=== PATIENT | female | born 1995 | race Caucasian/White ===

== ENCOUNTER 2019-02-03 15:51 | Observation (INO) ==
[2019-02-03 16:38] LABS: Bilirubin,Urine Negative (Negative); Blood,Urine Negative (Negative); Clarity,Urine Cloudy (Clear); Color,Urine Yellow (Yellow); Glucose,Urine (UA) Normal (Normal); Ketones,Urine Negative (Negative); Leukocyte Esterase,Urine Small (Negative); Nitrite,Urine Negative (Negative); Protein,Urine Negative (Neg-Trace); Specific Gravity,Urine 1.017 (1.010-1.025); Urobilinogen,Urine Normal (Normal)
[2019-02-03 16:40] LABS: Bacteria,Urine None Seen per hpf (None-Few); Hyaline Casts,Urine None Seen per lpf (None-Few); RBC,Urine 0-3 per hpf (0-3); Squamous Epithelial Cell,Urine Many per lpf (None-Few)
[2019-02-03 16:49] LABS: Amphetamine Screen,Urine Negative ng/mL (Cutoff=1000); Barbiturate Screen,Urine Negative ng/mL (Cutoff=200)
[2019-02-03 16:50] LABS: Benzodiazepines Screen,Urine Negative ng/mL (Cutoff=300); Cannabinoid Screen,Urine Negative ng/mL (Cutoff = 50); Cocaine Screen,Urine Negative ng/mL (Cutoff= 300); Opiate Screen,Urine Negative ng/mL (Cutoff=300); Phencyclidine Screen,Urine Negative ng/mL (Cutoff=25)
[2019-02-03 17:07] VITALS: BP 144/93
--- NOTE | 2019-02-03 17:51 | Discharge Summary ---
Date of Encounter: 02/03/19 Time of Encounter: 17:51 - Discharge Diagnosis (1) 20 weeks gestation of Priority: Primary Status: Acute Comments: Follow-up with Dr. Whelan as scheduled Muscle strain discussed Discharge home (2) Left sided abdominal pain of unknown cause Priority: Secondary Status: Acute Comments: RX for flexiril given for pt to take prn Advised to use heating pad for 20 minutes every hour Work note given for 2 days - Discharge Medications Prescriptions: New Cyclobenzaprine [Flexeril] 10 mg PO TID PRN 2 Days #6 tablet PRN Reason: Pain Continue Mini Tablet 1 tab PO DAILY Certolizumab Pegol [Cimzia] 400 mg SQ QMONTH Home Medications: Certolizumab Pegol [Cimzia] 400 mg SQ QMONTH 02/03/19 [History] Cyclobenzaprine [Flexeril] 10 mg PO TID PRN 2 Days #6 tablet 02/03/19 [Rx] Mini Tablet 1 tab PO DAILY 02/03/19 [History] Allergies/Adverse Reactions: Allergy/AdvReac Type Severity Reaction Status Date / Time No Known Allergies Allergy Verified 10/31/18 17:31 Data Procedures and tests throughout hospitalization: Laboratory Tests 02/03/19 02/03/19 16:20 16:20 Urine Color Yellow Urine Clarity Cloudy A Urine pH 7.0 Ur Specific [place] 1.017 Urine Protein Negative Urine Glucose (UA) Normal Urine Ketones Negative Urine Blood Negative Urine Nitrite Negative Urine Bilirubin Negative Urine Urobilinogen Normal Ur Leukocyte Esterase Small H Urine Microscopic RBC 0-3 Urine Microscopic WBC 5-15 H Ur Squamous Epith Cells Many H Urine Bacteria None Seen Hyaline Casts None Seen Ur Culture Indicated? NO. A Urine Opiates Screen Negative Ur Barbiturates Screen Negative Ur Phencyclidine Scrn Negative Ur Amphetamines Screen Negative U Benzodiazepines Scrn Negative Urine Cocaine Screen Negative U Marijuana (THC) Screen Negative Ur Drug Screen Interp See Below Labs on day of discharge: Labs from last 24 hours 02/03/19 02/03/19 16:20 16:20 Urine Color Yellow Urine Clarity Cloudy A Urine pH 7.0 Ur Specific [place] 1.017 Urine Protein Negative Urine Glucose (UA) Normal Urine Ketones Negative Urine Blood Negative Urine Nitrite Negative Urine Bilirubin Negative Urine Urobilinogen Normal Ur Leukocyte Esterase Small H Urine Microscopic RBC 0-3 Urine Microscopic WBC 5-15 H Ur Squamous Epith Cells Many H Urine Bacteria None Seen Hyaline Casts None Seen Ur Culture Indicated? NO. A Urine Opiates Screen Negative Ur Barbiturates Screen Negative Ur Phencyclidine Scrn Negative Ur Amphetamines Screen Negative U Benzodiazepines Scrn Negative Urine Cocaine Screen Negative U Marijuana (THC) Screen Negative Ur Drug Screen Interp See Below Date of admission: 02/03/19 15:41 Discharging clinician: Xin Schofield Anticipated date of discharge: 02/03/19 - Patient Status Disposition: Home, Self-Care Condition: Good Functional capacity at discharge: independent ambulation Overall status at discharge: patient is progressing back to baseline - Discharge Instructions Follow Up With: Marie Whelan DO [Partnered Physician] - - Diet and Activity Activity: increase activity as tolerated Diet: regular diet 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 She reports last intercourse was 7 AM this morning. She states the pain is constant and not related to movement or position. She denies dysuria, leakage of fluid, vaginal bleeding, contractions. Her analysis was negative. We discussed that this is likely a muscle strain. We discussed aftercare for muscle strain. She is discharged home with appropriate follow-up in stable condition. Time Attestation: Total time spent providing and/or coordinating discharge services: Time Spent: Less than 30 minutes Exam - Constitutional Vitals: Temp Pulse Resp BP Pulse Ox 99.4 F 82 16 144/93 98 02/03/19 16:45 02/03/19 16:45 02/03/19 16:45 02/03/19 16:45 02/03/19 16:45 General appearance IM: A&O X 3 - Respiratory Respiratory exam: Present: CTAB - Cardiovascular Cardiovascular exam IM: Present: RRR, +S1, +S2 - GI/Abdominal GI/Abdominal exam IM: normal bowel sounds, no peritoneal signs - Rectal Rectal exam: deferred - Uterine Tone: Firm - Extremities Exam Extremities exam IM: Present: full ROM, normal capillary refill, normal inspection, radial pulses palpable and symmetrical - Neurological Exam Neurological exam: alert, CN II-XII intact, normal gait, oriented X3, reflexes normal, no focal deficits, strengths equal and symetr throughout - Other Additional findings: Left-sided torso pain - VTE Reasons for not Prescribing Prophylaxis: Treatment not Indicated - Low risk for VTE
== END 2019-02-03 18:17 | disposition home or self-care (01) ==
LOC: 1NENULAB
PROVIDERS: ADMIT Advanced Practice Midwife; ATTEND Advanced Practice Midwife

== ENCOUNTER → 2019-02-08 04:00 | Observation (INO) ==
[2019-02-08 01:32] LABS: Basophils % 0.2 %; Eosinophils # 0.1 K/mcL (0.0-0.6); Eosinophils % 0.5 %; Hematocrit 34.8 % (35.3-44.9); Hemoglobin 11.7 g/dL (11.5-15.4); Immature Granulocytes % 0.4 % (0-4); Lymphocytes # 1.9 K/mcL (0.6-4.6); Lymphocytes % 10.5 %; Mean Corpuscular HGB Conc 33.6 g/dL (31.6-35.5); Mean Corpuscular Hemoglobin 28.5 pg (28.0-33.3); Mean Corpuscular Volume 84.9 fL (83.0-100.0); Monocytes # 0.9 K/mcL (0.0-1.3); Monocytes % 5.1 %; Neutrophils # 14.7 K/mcL (1.6-8.9); Platelet Count 196 K/mcL (140-400); Red Cell Distribution Width 14.4 % (11.5-14.5); Segmented Neutrophils % 83.3 %
[2019-02-08 01:57] LABS: Bilirubin,Urine Negative (Negative); Blood,Urine Small (Negative); Clarity,Urine Cloudy (Clear); Color,Urine Yellow (Yellow); Glucose,Urine (UA) Normal (Normal); Ketones,Urine Trace mg/dL (Negative); Leukocyte Esterase,Urine Large (Negative); Nitrite,Urine Negative (Negative); Protein,Urine 30 mg/dL (Neg-Trace); Specific Gravity,Urine 1.008 (1.010-1.025); Urobilinogen,Urine Normal (Normal)
[2019-02-08 02:00] LABS: Bacteria,Urine Many per hpf (None-Few); Hyaline Casts,Urine None Seen per lpf (None-Few); Squamous Epithelial Cell,Urine Moderate per lpf (None-Few); WBC,Urine TNTC per hpf (0-3)
[2019-02-08 02:16] LABS: Amphetamine Screen,Urine Negative ng/mL (Cutoff=1000); Barbiturate Screen,Urine Negative ng/mL (Cutoff=200); Benzodiazepines Screen,Urine Negative ng/mL (Cutoff=200); Cannabinoid Screen,Urine Negative ng/mL (Cutoff = 50); Cocaine Screen,Urine Negative ng/mL (Cutoff= 300); Opiate Screen,Urine Negative ng/mL (Cutoff=300); Phencyclidine Screen,Urine Negative ng/mL (Cutoff=25)
--- NOTE | 2019-02-08 03:31 | OB/GYN Progress Note ---
Date of Encounter: 02/08/19 Time of Encounter: 03:29 - Assessment and Plan (1) Right flank pain Current Visit: Yes Status: Acute Afebrile. - CVA tenderness, but WBC and UA indicate pyelo. Discussed with Dr. Clark will give 1gm IM Rocephin and discharge home with po Keflex TID for 10 days. Pt has follow up appointment on Saturday. Discussed if she does not have improvement of symptoms, develops fever, or increase in pain or malaise she needs to return to triage for evaluation. Laboratory Results - last 24 hr 02/08/19 02/08/19 02/08/19 01:19 01:30 01:30 WBC 17.6 H RBC 4.10 Hgb 11.7 Hct 34.8 L MCV 84.9 MCH 28.5 MCHC 33.6 RDW 14.4 Plt Count 196 MPV 11.0 Immature Gran % 0.4 Seg Neutrophils % 83.3 Lymphocytes % 10.5 Monocytes % 5.1 Eosinophils % 0.5 Basophils % 0.2 Neutrophils # 14.7 H Lymphocytes # 1.9 Monocytes # 0.9 Eosinophils # 0.1 Basophils # 0.0 Urine Color Yellow Urine Clarity Cloudy A Urine pH 8.0 Ur Specific [place] 1.008 L Urine Protein 30 H Urine Glucose (UA) Normal Urine Ketones Trace H Urine Blood Small H Urine Nitrite Negative Urine Bilirubin Negative Urine Urobilinogen Normal Ur Leukocyte Esterase Large H Urine Microscopic RBC 5-15 H Urine Microscopic WBC TNTC H Ur Squamous Epith Cells Moderate H Urine Bacteria Many H Hyaline Casts None Seen Ur Culture Indicated? YES A Urine Opiates Screen Negative Ur Barbiturates Screen Negative Ur Phencyclidine Scrn Negative Ur Amphetamines Screen Negative U Benzodiazepines Scrn Negative Urine Cocaine Screen Negative U Marijuana (THC) Screen Negative Ur Drug Screen Interp See Below (2) 20 weeks gestation of Current Visit: No Status: Acute Subjective - Subjective Interval history: 20+5 presents with flank pain. Pt states she was seen a couple days ago for a muscle strain on the left side. Today patient has been having severe pain to her left lower back, it varies in intensity and hurts with rest. Denies dysuria, frequency or urgency. Reports movement, denies vaginal bleeding or leaking of fluid. Antepartum ROS: movement normal, no loss of fluid, no vaginal bleeding, no contractions Objective - Vital Signs Vital Signs: Intake and Output 02/07/19 02/07/19 02/08/19 15:59 23:59 07:59 Other: Weight 81.7 kg Patient Weight 02/08/19 23:59 Weight 81.7 kg - Exam FHR comments: + FHT Abdomen: Present: soft, gravid Comments: - cva tenderness - Labs Labs: Abnormal lab results WBC 17.6 K/mcL (4.3-11.1) H 02/08/19 01:19 Hct 34.8 % (35.3-44.9) L 02/08/19 01:19 Neutrophils # 14.7 K/mcL (1.6-8.9) H 02/08/19 01:19 Urine Clarity Cloudy (Clear) A 02/08/19 01:30 Ur Specific [place] 1.008 (1.010-1.025) L 02/08/19 01:30 Urine Protein 30 mg/dL (Neg-Trace) H 02/08/19 01:30 Urine Ketones Trace mg/dL (Negative) H 02/08/19 01:30 Urine Blood Small (Negative) H 02/08/19 01:30 Ur Leukocyte Esterase Large (Negative) H 02/08/19 01:30 Urine Microscopic RBC 5-15 per hpf (0-3) H 02/08/19 01:30 Urine Microscopic WBC TNTC per hpf (0-3) H 02/08/19 01:30 Ur Squamous Epith Cells Moderate per lpf (None-Few) H 02/08/19 01:30 Urine Bacteria Many per hpf (None-Few) H 02/08/19 01:30 Ur Culture Indicated? YES (NO) A 02/08/19 01:30
[~2019-02-08 04:00] MED LIST: Acetaminophen 325 MG TABLET PO ONE; CefTRIAXone 1,000 MG VIAL IM ONE; Lidocaine -MPF 1% 5 ML AMPUL ID ONE; Ondansetron ODT 4 MG TAB.RAPDIS SL PRN
== END | disposition home or self-care (01) ==
LOC: 1NENULAB
PROVIDERS: ADMIT Obstetrics & Gynecology; ATTEND Obstetrics & Gynecology

== ENCOUNTER 2019-05-22 08:33 | Observation (INO) ==
[2019-05-22 09:27] LABS: Bilirubin,Urine Negative (Negative); Blood,Urine Negative (Negative); Clarity,Urine Clear (Clear); Color,Urine Yellow (Yellow); Glucose,Urine (UA) Normal (Normal); Ketones,Urine Negative (Negative); Leukocyte Esterase,Urine Moderate (Negative); Nitrite,Urine Negative (Negative); PH,Urine 6.5 pH Units (5.0-8.0); Protein,Urine Negative (Neg-Trace); Specific Gravity,Urine 1.008 (1.010-1.025); Urobilinogen,Urine Normal (Normal)
[2019-05-22] MEDS ORDERED: Acetaminophen/Butalbital/CaffeineTABLET PO PRN (09:28)
[2019-05-22 09:30] LABS: Bacteria,Urine None Seen per hpf (None-Few); Hyaline Casts,Urine None Seen per lpf (None-Few); RBC,Urine 0-3 per hpf (0-3); Squamous Epithelial Cell,Urine Many per lpf (None-Few)
[2019-05-22 09:37] LABS: Amphetamine Screen,Urine Negative ng/mL (Cutoff=1000); Barbiturate Screen,Urine Negative ng/mL (Cutoff=200); Benzodiazepines Screen,Urine Negative ng/mL (Cutoff=200); Cannabinoid Screen,Urine Negative ng/mL (Cutoff = 50); Cocaine Screen,Urine Negative ng/mL (Cutoff= 300); Opiate Screen,Urine Negative ng/mL (Cutoff=300); Phencyclidine Screen,Urine Negative ng/mL (Cutoff=25)
[2019-05-22] MEDS ORDERED: Ondansetron ODT 4 MG TAB.RAPDIS SL PRN (10:42)
--- NOTE | 2019-05-22 11:59 | Discharge Summary ---
Date of Encounter: 05/22/19 Time of Encounter: 11:58 - Discharge Diagnosis (1) 35 weeks gestation of Priority: Secondary Status: Acute Comments: admitted for observation (2) Nausea & vomiting Priority: Primary Status: Acute Comments: admitted for observation Nausea better with Zofran ODT Qualifiers: Vomiting type: unspecified Vomiting Intractability: unspecified (3) NST (non-stress test) reactive on surveillance Priority: Secondary Status: Acute Comments: FHR 135 bpm moderate variability +15x15 accels no decels noted. Irregular contractions. Cat. 1 tracing - Discharge Medications Prescriptions: New Ondansetron ODT [Zofran ODT] 4 mg SL Q6HR PRN #12 tab.rapdis PRN Reason: Nausea And Vomiting Continued Mini Tablet 1 tab PO DAILY Certolizumab Pegol [Cimzia] 400 mg SQ QMONTH Nitrofurantoin Monohyd/M-Cryst [Macrobid 100 mg Capsule] 100 mg PO DAILY Home Medications: Certolizumab Pegol [Cimzia] 400 mg SQ QMONTH 02/03/19 [History] Mini Tablet 1 tab PO DAILY 02/03/19 [History] Nitrofurantoin Monohyd/M-Cryst [Macrobid 100 mg Capsule] 100 mg PO DAILY 05/22/19 [History] Ondansetron ODT [Zofran ODT] 4 mg SL Q6HR PRN #12 tab.rapdis 05/22/19 [Rx] Allergies/Adverse Reactions: Allergy/AdvReac Type Severity Reaction Status Date / Time No Known Allergies Allergy Verified 02/08/19 02:23 Data Procedures and tests throughout hospitalization: Laboratory Tests 05/22/19 05/22/19 09:00 09:00 Urine Color Yellow Urine Clarity Clear Urine pH 6.5 Ur Specific [place] 1.008 L Urine Protein Negative Urine Glucose (UA) Normal Urine Ketones Negative Urine Blood Negative Urine Nitrite Negative Urine Bilirubin Negative Urine Urobilinogen Normal Ur Leukocyte Esterase Moderate H Urine Microscopic RBC 0-3 Urine Microscopic WBC 5-15 H Ur Squamous Epith Cells Many H Urine Bacteria None Seen Hyaline Casts None Seen Ur Culture Indicated? YES A Urine Opiates Screen Negative Ur Buprenorphine Scrn Negative Ur Barbiturates Screen Negative Ur Phencyclidine Scrn Negative Ur Amphetamines Screen Negative U Benzodiazepines Scrn Negative Urine Cocaine Screen Negative U Marijuana (THC) Screen Negative Ur Drug Screen Interp See Below Labs on day of discharge: Labs from last 24 hours 05/22/19 05/22/19 09:00 09:00 Urine Color Yellow Urine Clarity Clear Urine pH 6.5 Ur Specific [place] 1.008 L Urine Protein Negative Urine Glucose (UA) Normal Urine Ketones Negative Urine Blood Negative Urine Nitrite Negative Urine Bilirubin Negative Urine Urobilinogen Normal Ur Leukocyte Esterase Moderate H Urine Microscopic RBC 0-3 Urine Microscopic WBC 5-15 H Ur Squamous Epith Cells Many H Urine Bacteria None Seen Hyaline Casts None Seen Ur Culture Indicated? YES A Urine Opiates Screen Negative Ur Buprenorphine Scrn Negative Ur Barbiturates Screen Negative Ur Phencyclidine Scrn Negative Ur Amphetamines Screen Negative U Benzodiazepines Scrn Negative Urine Cocaine Screen Negative U Marijuana (THC) Screen Negative Ur Drug Screen Interp See Below Preliminary micro results at discharge 05/22/19 09:00 Urine Culture - Preliminary Urine,Clean Catch Culture is incubating. 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 Patient states she took a tylenol and had no relief. Patient reports good movement. Denies LOF or VB. Patient reports feeling better after zofran and is tolerating clear liquid diet. Patient states headache is gone at this time. Patient to be discharged home and follow up with Dr. Whelan in 1 week. Time Attestation: Total time spent providing and/or coordinating discharge services: Time Spent: Less than 30 minutes Exam - Constitutional General appearance IM: A&O X 3, pleasant, answers questions appropriately - Respiratory Respiratory exam: Present: CTAB - Cardiovascular Cardiovascular exam IM: Present: RRR, +S1, +S2 - GI/Abdominal GI/Abdominal exam IM: normal bowel sounds - Extremities Exam Extremities exam IM: Present: full ROM, normal inspection - Neurological Exam Neurological exam: alert, oriented X3, reflexes normal - Other Additional findings: SVE /-2 - VTE Reasons for not Prescribing Prophylaxis: Treatment not Indicated - Low risk for VTE
== END 2019-05-22 12:29 | disposition home or self-care (01) ==
LOC: 1NENULAB
PROVIDERS: ADMIT Advanced Practice Midwife; ATTEND Advanced Practice Midwife

== ENCOUNTER → 2019-06-09 18:06 | Observation (INO) ==
[2019-06-09 16:59] LABS: Basophils % 0.2 %; Eosinophils # 0.1 K/mcL (0.0-0.6); Eosinophils % 0.7 %; Hematocrit 34.1 % (35.3-44.9); Hemoglobin 11.5 g/dL (11.5-15.4); Immature Granulocytes % 0.5 % (0-4); Lymphocytes # 2.1 K/mcL (0.6-4.6); Lymphocytes % 17.2 %; Mean Corpuscular HGB Conc 33.7 g/dL (31.6-35.5); Mean Corpuscular Hemoglobin 28.8 pg (28.0-33.3); Mean Corpuscular Volume 85.3 fL (83.0-100.0); Monocytes # 0.7 K/mcL (0.0-1.3); Monocytes % 5.7 %; Neutrophils # 9.3 K/mcL (1.6-8.9); Platelet Count 151 K/mcL (140-400); Red Cell Distribution Width 13.9 % (11.5-14.5); Segmented Neutrophils % 75.7 %; White Blood Count 12.2 K/mcL (4.3-11.1)
[2019-06-09 17:06] LABS: Protein/Creatinine Ratio,Urine 0.14 mg/mg (0.00-0.20)
[2019-06-09 17:07] LABS: Amphetamine Screen,Urine Negative ng/mL (Cutoff=1000); Barbiturate Screen,Urine Negative ng/mL (Cutoff=200); Benzodiazepines Screen,Urine Negative ng/mL (Cutoff=200); Cannabinoid Screen,Urine Negative ng/mL (Cutoff = 50); Cocaine Screen,Urine Negative ng/mL (Cutoff= 300); Opiate Screen,Urine Negative ng/mL (Cutoff=300); Phencyclidine Screen,Urine Negative ng/mL (Cutoff=25)
[2019-06-09 17:18] LABS: Alanine Aminotransferase 5 Units/L (7-52); Aspartate Amino Transferase 11 Units/L (13-39); BUN/Creatinine Ratio 20 (6-26); Blood Urea Nitrogen 10 mg/dL (6-20); Lactate Dehydrogenase 111 Units/L (140-271); Uric Acid 5.2 mg/dL (2.3-7.6); eGFR For African Americans > 60 (> 60); eGFR For Non-African Americans > 60 (> 60)
--- NOTE | 2019-06-09 18:18 | OB/GYN Progress Note ---
Date of Encounter: 06/09/19 Time of Encounter: 18:15 - Assessment and Plan (1) 38 weeks gestation of Status: Acute (2) Elevated blood pressure affecting in third trimester, antepartum Status: Acute Patient normotensive blood pressures 132/79 121/38398/79 133/83 . PIH labs negative. Discharged home with PIH, and labor precautions. Patient verbalizes understanding. Subjective - Subjective Interval history: 30 and 0 weeks gestation presents to triage for PIH evaluation. Patient had elevated blood pressures in office. Reports good movement, denies vaginal bleeding or leaking of fluid. Antepartum ROS: movement normal, no loss of fluid, no vaginal bleeding, no contractions Objective - Vital Signs Vital Signs: Intake and Output 06/09/19 06/09/19 06/09/19 07:59 15:59 23:59 Other: Weight 85.23 kg Patient Weight 06/09/19 23:59 Weight 85.23 kg - Exam FHR: auscultation normal FHR comments: Baseline 130 Abdomen: Present: soft, gravid - Labs Labs: Abnormal lab results WBC 12.2 K/mcL (4.3-11.1) H 06/09/19 16:46 Hct 34.1 % (35.3-44.9) L 06/09/19 16:46 MPV 13.0 fL (9.4-12.4) H 06/09/19 16:46 Neutrophils # 9.3 K/mcL (1.6-8.9) H 06/09/19 16:46 Creatinine 0.50 mg/dL (0.60-1.20) L 06/09/19 16:45 AST 11 Units/L (13-39) L 06/09/19 16:45 ALT 5 Units/L (7-52) L 06/09/19 16:45 Lactate Dehydrogenase 111 Units/L (140-271) L 06/09/19 16:45 Urine Total Protein 17 mg/dL (1-14) H 06/09/19 16:47
== END | disposition home or self-care (01) ==
LOC: 1NENULAB
PROVIDERS: ADMIT Advanced Practice Midwife; ATTEND Advanced Practice Midwife

== ENCOUNTER 2019-06-13 00:36 | Inpatient (IN) ==
[2019-06-13] MEDS ORDERED: Ondansetron ODT 4 MG TAB.RAPDIS SL ONE (01:21)
[2019-06-13] MEDS ORDERED: Lidocaine 1% 20 ML MDV INFILT PRN (02:24)
[2019-06-13] MEDS ORDERED: Ondansetron 4 MG/2 ML VIAL IVP PRN (02:24)
[2019-06-13] MEDS ORDERED: Naloxone 0.4 MG/ML INJ IVP PRN (02:24)
[2019-06-13] MEDS ORDERED: Famotidine 20 MG/2 ML VIAL IVP PRN (02:24)
[2019-06-13] MEDS ORDERED: *HR* Nalbuphine 10 MG/ML AMPUL IVP PRN (02:24)
[2019-06-13] MEDS ORDERED: Metoclopramide 10 MG/2 ML VIAL IVP PRN (02:24)
[2019-06-13] MEDS ORDERED: Ringers Solution, Lactated 1,000 ML ONE (02:28)
[2019-06-13] MEDS ORDERED: Ringers Solution, Lactated 1,000 ML IVC SCH (02:30)
--- NOTE | 2019-06-13 02:40 | OB/GYN History & Physical ---
Date of Encounter: 06/13/19 Time of Encounter: 02:35 Assessment and Plan (1) Active labor Current visit: Yes Status: Acute Admit to L&D for observation of labor Expectant management Intermittent auscultation okay Labs-CBC and type and screen to hold Pain management plan is epidural-may have upon request Anticipate vaginal delivery Dr. Goodman is OB on-call and is available as needed (2) Intrauterine Current visit: Yes Status: Acute (3) 38 weeks gestation of Current visit: No Status: Acute History of Present Illness Chief complaint: active labor HPI: Ms. Vidales is a 23 year old female at 38 weeks for 4 days gestation with an estimated date of of 06/23/19 dated by initial exam. She presents with complaint of contractions starting at 2300 on 06/12/19. She presented to labor and delivery and quickly made change from 4-8. She is followed by Dr. Whelan throughout her . Her has been complicated by recurrent UTIs, Rh- status, and GRECIA 7.7. records are available electronically and have been reviewed. Labs: A- GBS- Hep B- HIV- T. Palladium- GC/CL- Varicella immune Rubella immune Past Med Surg Social Fam HX - Past Medical History Medical history: arthritis Additional medical history: Psoriatic Arthritis Psychiatric history: no psych history - Past Surgical History Additional surgical history: mass removed from left breast 2014 - Social History Smoking Status: Never smoker Smokeless Tobacco Status: No Alcohol use: none Drug use: none - Family History Mother Living Status: Still Living Hx Family Cardiac Disorders: No Hx Family Respiratory Disorders: No Hx Family Cancer: No Hx Family GI Disorders: No Hx Family Genitourinary Disorders: No Hx Family Endocrine Disorder: No Hx Family Musculoskeletal Disorders: No Hx Family Neuromuscular Disorders: No Hx Family Neurologic Disorders: No Hx Family HEENT Disorders: No Hx Family Autoimmune Disorders: No Hx Family Reproductive Disorders: No Hx Family Psychosocial Disorders: No Hx Family Medical Disorders: No Obstetrical History - Pregnancies : 1 Para: 0 Term: 0 : 0 Ab's: 0 Livin Medications and Allergies Certolizumab Pegol [Cimzia] 400 mg SQ QMONTH 02/03/19 [History] Mini Tablet 1 tab PO DAILY 02/03/19 [History] Nitrofurantoin Monohyd/M-Cryst [Macrobid 100 mg Capsule] 100 mg PO DAILY 05/22/19 [History] Allergy/AdvReac Type Severity Reaction Status Date / Time No Known Allergies Allergy Verified 02/08/19 02:23 Review of System OB All systems PM: reviewed and no additional remarkable complaints except as stated Exam - Constitutional Constitutional: well developed, well nourished, average body habitus, moderate distress - HEENT HEENT: PERRL, Normocephaly, Mucus Membranes Moist - Neck Neck exam: full ROM - Lungs Respiratory exam: CTAB - Cardiovascular Cardiovascular exam: RRR, +S1, +S2 - Breasts Breast: bilateral: normal - Abdomen Abdomen: Present: bowel sounds normal, gravid, non tender - Extremities Extremities exam: normal capillary refill, normal inspection, radial pulses palpable and symmetrical - Vulva Vulva: bilateral: normal - Vagina Vagina: Present: normal moisture - Cervix Dilation: 8 Effacement: 100 Station: -1 - Uterus Uterus exam: Present: normal size, normal contour - Adnexa Adnexa: bilateral: normal - Anus/Rectum Anus/Rectum: Present: normal perianal skin Results All other labs normal. - VTE Reasons for not Prescribing Prophylaxis: Treatment not Indicated - Low risk for VTE
[2019-06-13 02:47] LABS: Basophils % 0.2 %; Eosinophils # 0.1 K/mcL (0.0-0.6); Eosinophils % 0.6 %; Hematocrit 35.9 % (35.3-44.9); Hemoglobin 12.1 g/dL (11.5-15.4); Immature Granulocytes % 0.5 % (0-4); Lymphocytes # 2.3 K/mcL (0.6-4.6); Lymphocytes % 15.5 %; Mean Corpuscular HGB Conc 33.7 g/dL (31.6-35.5); Mean Corpuscular Hemoglobin 28.3 pg (28.0-33.3); Mean Corpuscular Volume 84.1 fL (83.0-100.0); Mean Platelet Volume 13.4 fL (9.4-12.4); Monocytes # 1.1 K/mcL (0.0-1.3); Monocytes % 7.2 %; Neutrophils # 11.4 K/mcL (1.6-8.9); Platelet Count 157 K/mcL (140-400); Red Blood Count 4.27 M/mcL (3.82-4.97); Red Cell Distribution Width 14.1 % (11.5-14.5)
[2019-06-13] MEDS ORDERED: Oxytocin 20 units/ LR 1000 mL 20 UNIT/1,000 ML BAG IVC ONE (02:53)
[2019-06-13] MEDS ORDERED: Bupivacaine-MPF 0.25% 10 ML VIAL ONE (03:00)
[2019-06-13] MEDS ORDERED: Epidural Premix (fent/bupiv) 110 ML EP SCH (03:00)
[2019-06-13] MEDS ORDERED: *HR* FentaNYL (PF) 100 MCG/2 ML VIAL ONE (03:00)
[2019-06-13] MEDS ORDERED: *HR* Labetalol 20 MG/4 ML SYRINGE IVP ONE ×3 (03:03→03:28)
[2019-06-13 03:39] LABS: Alanine Aminotransferase 5 Units/L (7-52); Aspartate Amino Transferase 11 Units/L (13-39); BUN/Creatinine Ratio 21 (6-26); Blood Urea Nitrogen 10 mg/dL (6-20); Lactate Dehydrogenase 132 Units/L (140-271); Uric Acid 5.4 mg/dL (2.3-7.6); eGFR For African Americans > 60 (> 60); eGFR For Non-African Americans > 60 (> 60)
[2019-06-13 04:39] LABS: Amphetamine Screen,Urine Negative ng/mL (Cutoff=1000); Barbiturate Screen,Urine Negative ng/mL (Cutoff=200); Benzodiazepines Screen,Urine Negative ng/mL (Cutoff=200); Cannabinoid Screen,Urine Negative ng/mL (Cutoff = 50); Cocaine Screen,Urine Negative ng/mL (Cutoff= 300); Opiate Screen,Urine Negative ng/mL (Cutoff=300); Phencyclidine Screen,Urine Negative ng/mL (Cutoff=25); Protein/Creatinine Ratio,Urine 0.27 mg/mg (0.00-0.20)
--- NOTE | 2019-06-13 06:43 | Anesthesia Evaluation PreOp ---
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 No FHAP.) : Yes Alcohol Use: none Drug use: none Medications and Allergies Certolizumab Pegol [Cimzia] 400 mg SQ QMONTH 02/03/19 [History] Mini Tablet 1 tab PO DAILY 02/03/19 [History] Nitrofurantoin Monohyd/M-Cryst [Macrobid 100 mg Capsule] 100 mg PO DAILY 05/22/19 [History] Allergy/AdvReac Type Severity Reaction Status Date / Time No Known Allergies Allergy Verified 02/08/19 02:23 - Meds/Allergy Pre-op Review Medications Reviewed: Yes Allergies Reviewed: Yes Beta Blockers on Current Med List: No Anesthesia Results - Labs 06/13/19 02:30 06/13/19 02:30 Anesthesia Exam 172/72, 67, 20. FHTs 140s. 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
[2019-06-13] MEDS ORDERED: Oxytocin 20 units/ LR 1000 mL 20 UNIT/1,000 ML BAG IVC SCH ×2 (07:30→12:50)
--- NOTE | 2019-06-13 09:22 | OB Labor Progress Note ---
Date of Encounter: 06/13/19 Time of Encounter: 09:20 Labor Progress Note - Subjective Subjective: Patient now comfortable with epidural - Cervix Cervix: 9/100/+1 - Heart Tones Heart Tones: Baseline 130 Moderate variability Accelerations present 15 x 15 Early decelerations FHR Category I - Grand Ledge Grand Ledge: Contractions every 2-3 minutes - Interventions Interventions: SVE deep lateral positioning - Plan Physician notified: No Plan: Continue expectant management Frequent position changes Anticipate
--- NOTE | 2019-06-13 09:35 | Anesthesia Procedures ---
Date of Encounter: 06/13/19 Time of Encounter: 03:10 Procedures: Anesthesia - Epidural/Spinal Patient ID/Chart reviewed: Yes Patient examined: Yes OB Eval: Gestational age: 39 OB Eval: : 1 OB Eval: Hx Para: 0 OB Eval: Dilated at (cm): 5 OB Eval: Contractions: Non-stressed pattern Consent Obtained: Yes Supplemental Oxygen: None/Room Air Site Prep: Aseptic Technique, Sterile prep and drape, 0.5% Chlorhexidine/Alcohol Patient position: upright Local Anesthetic: Lidocaine 1% Amount of Local Anesthetic used: 3 Touhy Needle Gauge: 18 Touhy Needle Depth (cm): 6 Catheter Depth at Skin (cm): 20 Test Dose (1.5% Lido + Epi): Volume given (mls): 3 Test Dose Result: Negative Loading Dose: 0.25% Marcaine (mls): 5 Loading Dose: Fentanyl (mcg): 100 Loading Dose Administered: Thru Catheter Infusion Med: 0.125% Bupivacaine w/ 2 mcg/ml Fentanyl Infusion Rate (mls/hr): [address]: Tegaderm Interspace Used: L2-L3 Loss of Resistance (MARA): Yes Blood: No CSF: No Paresthesia: No Procedure: aseptic, tioler well, VSS, effective
--- NOTE | 2019-06-13 11:16 | OB/GYN Procedure Note ---
Delivery - Delivery Date: 06/13/19 Provider: Xin Schofield Intrapartum events: none Delivery induction: none Delivery augmentation: pitocin Delivery monitor: external FHT, external uterine Anesthesia: epidural Quantitated Blood Loss: 100 - (s) A Infant Delivery Date: 06/13/19 Delivery Time: 10:56 Presentation: vertex Position: CASS Route of delivery: Gender: Male Viability: Viable Pounds: 6 Ounces: 10 Weight Gram: 3.14 kg at 1 minute: 8 at 5 mins: 10 Shoulder Dystocia: not encountered Specimens collected: cord blood Placenta: spontaneous Cord: 3 umbilical vessels - Repair Episiotomy: none Laceration Description: None - Complications Delivery complications: none Delivery comments: This is a 23 year old G1 now P1001 who was admitted for active labor. She progressed with Pitocin augmentation to the second stage of labor. She pushed for less than 15 minutes. She delivered a viable, male , CASS "Librado" over an intact perineum. A nuchal cord was not identified. A shoulder dystocia was not encountered. The was placed on the maternal abdomen and allowed to transition spontaneously. The cord was double clamped by sausage tier after pulsations ceased and cut by sister of the mother. scores were 8 at 1 minute and 10 at 5 minutes. The infant weighed 6lbs 10oz (3140g). The placented delivered spontaneously, intact ([place]) with a 3-vessel cord. Inspection revealed an intact perineum. The uterus was firm with no active bleeding. EBL was 100mL. Placenta and umbilical artery blood gases were not sent. There were no complications during the procedure. Mom and baby are skin to skin following delivery. - Disposition Mom disposition: stable in LDR disposition: stable in LDR
[2019-06-13] MEDS ORDERED: Acetaminophen 325 MG TABLET PO PRN (12:50)
[2019-06-13] MEDS ORDERED: Benzocaine/Menthol 56 GM AEROSOL SPRAY TP PRN (12:50)
[2019-06-13] MEDS ORDERED: Ibuprofen 600 MG TABLET PO PRN (12:50)
[2019-06-13] MEDS ORDERED: Rho Immune Globulin 1,500 UNIT SYRINGE IM PRN (12:50)
[2019-06-14] MEDS ORDERED: Lanolin 7 G OINT...G. TP PRN (00:42)
[2019-06-14 08:03] VITALS: BP 130/73
--- NOTE | 2019-06-14 08:44 | Discharge Summary ---
Date of Encounter: 06/14/19 Time of Encounter: 08:41 - Discharge Diagnosis (1) Vaginal delivery Priority: Primary Status: Acute Comments: Continue routine care discharge home today follow up with Dr. Whelan in 4-6 weeks (2) Breast feeding status of mother Priority: Secondary Status: Acute Comments: support prn - Discharge Medications Prescriptions: New Ibuprofen [Motrin] 600 mg PO Q6HR PRN tablet PRN Reason: Cramping Benzocaine/Menthol Blunt [Dermoplast Blunt] 1 appl TP QID PRN aerosol PRN Reason: See Comments Lanolin [Lansinoh] 1 appl TP TID PRN oint...g. PRN Reason: nipple discomfort Continued Mini Tablet 1 tab PO DAILY Discontinued Certolizumab Pegol [Cimzia] 400 mg SQ QMONTH Nitrofurantoin Monohyd/M-Cryst [Macrobid 100 mg Capsule] 100 mg PO DAILY Home Medications: Mini Tablet 1 tab PO DAILY 02/03/19 [History] Benzocaine/Menthol Blunt [Dermoplast Blunt] 1 appl TP QID PRN aerosol 06/14/19 [Rx] Ibuprofen [Motrin] 600 mg PO Q6HR PRN tablet 06/14/19 [Rx] Lanolin [Lansinoh] 1 appl TP TID PRN oint...g. 06/14/19 [Rx] Allergies/Adverse Reactions: Allergy/AdvReac Type Severity Reaction Status Date / Time No Known Allergies Allergy Verified 02/08/19 02:23 Data Procedures and tests throughout hospitalization: Laboratory Tests 06/13/19 06/13/19 06/13/19 02:30 02:30 04:15 WBC 15.0 H RBC 4.27 Hgb 12.1 Hct 35.9 MCV 84.1 MCH 28.3 MCHC 33.7 RDW 14.1 Plt Count 157 MPV 13.4 H Immature Gran % 0.5 Seg Neutrophils % 76.0 Lymphocytes % 15.5 Monocytes % 7.2 Eosinophils % 0.6 Basophils % 0.2 Neutrophils # 11.4 H Lymphocytes # 2.3 Monocytes # 1.1 Eosinophils # 0.1 Basophils # 0.0 BUN 10 Creatinine 0.47 L Est GFR ( Amer) > 60 Est GFR (Non-Af Amer) > 60 BUN/Creatinine Ratio 21 Uric Acid 5.4 AST 11 L ALT 5 L Lactate Dehydrogenase 132 L Urine Creatinine Protein/Creatinin Ratio Urine Total Protein Urine Opiates Screen Negative Ur Buprenorphine Scrn Negative Ur Barbiturates Screen Negative Ur Phencyclidine Scrn Negative Ur Amphetamines Screen Negative U Benzodiazepines Scrn Negative Urine Cocaine Screen Negative U Marijuana (THC) Screen Negative Ur Drug Screen Interp See Below 06/13/19 04:15 WBC RBC Hgb Hct MCV MCH MCHC RDW Plt Count MPV Immature Gran % Seg Neutrophils % Lymphocytes % Monocytes % Eosinophils % Basophils % Neutrophils # Lymphocytes # Monocytes # Eosinophils # Basophils # BUN Creatinine Est GFR ( Amer) Est GFR (Non-Af Amer) BUN/Creatinine Ratio Uric Acid AST ALT Lactate Dehydrogenase Urine Creatinine 60 Protein/Creatinin Ratio 0.27 H Urine Total Protein 16 H Urine Opiates Screen Ur Buprenorphine Scrn Ur Barbiturates Screen Ur Phencyclidine Scrn Ur Amphetamines Screen U Benzodiazepines Scrn Urine Cocaine Screen U Marijuana (THC) Screen Ur Drug Screen Interp Date of admission: 06/13/19 00:36 Consults: 06/13/19 12:50 Consult to [employer] [CONS] Routine Comment: Vaginal delivery, consult needed Discharging clinician: Ritika Scott Anticipated date of discharge: 06/14/19 - Patient Status Disposition: Home, Self-Care Condition: Good Functional capacity at discharge: independent ambulation - Discharge Instructions Follow Up With: Marie Whelan DO [Partnered Physician] - - Diet and Activity Activity: increase activity as tolerated Diet: regular diet Hospital Course Reason for admission: active labor Delivery: Episiotomy: none Laceration: none Other procedures: none complications: none Discharge diagnosis: IUP at term delivered baby: male (bottle feeding) Time Attestation: Total time spent providing and/or coordinating discharge services: Time Spent: Less than 30 minutes Exam - Constitutional Vitals: Temp Pulse Resp BP Pulse Ox 97.7 F 60 18 130/73 95 06/14/19 08:02 06/14/19 08:02 06/14/19 08:02 06/14/19 08:02 06/14/19 08:02 General appearance IM: A&O X 3, pleasant, answers questions appropriately - Respiratory Respiratory exam: Present: CTAB - Cardiovascular Cardiovascular exam IM: Present: RRR, +S1, +S2 - GI/Abdominal GI/Abdominal exam IM: normal bowel sounds - Uterine Tone: Firm Uterus Position: At Umbilicus, Midline - Extremities Exam Extremities exam IM: Present: full ROM, normal capillary refill, normal inspection - Neurological Exam Neurological exam: alert, oriented X3, reflexes normal
[2019-06-14] MEDS ORDERED: Prenatal Vit/FA 1 EACH TABLET PO SCH (09:00)
== END 2019-06-14 09:38 | disposition home or self-care (01) | DRG 807 ==
LOC: 1NENULAB → OBSVTOIN 00:36 → 1NENUOBS 13:38
PROVIDERS: ADMIT Advanced Practice Midwife; ATTEND Advanced Practice Midwife

== ENCOUNTER 2020-12-20 17:26 | Inpatient (IN) ==
[2020-12-20] MEDS ORDERED: Metoclopramide 10 MG/2 ML VIAL IVP PRN (17:46)
[2020-12-20] MEDS ORDERED: Famotidine 20 MG/2 ML VIAL IVP PRN (17:46)
[2020-12-20] MEDS ORDERED: Azithromycin 500 MG in 0.9 % Sodium Chloride 250 ML IVPB ONE (17:46)
[2020-12-20] MEDS ORDERED: Lidocaine 1% 20 ML MDV INFILT PRN (17:46)
[2020-12-20] MEDS ORDERED: *HR* Nalbuphine 10 MG/ML AMPUL IV PRN (17:46)
[2020-12-20] MEDS ORDERED: Ondansetron 4 MG/2 ML VIAL IVP PRN (17:46)
[2020-12-20] MEDS ORDERED: Naloxone 0.4 MG/ML INJ IVP PRN (17:46)
[2020-12-20] MEDS ORDERED: Ringers Solution, Lactated 1,000 ML IVC SCH (18:00)
[2020-12-20 18:05] LABS: Basophils % 0.2 %; Eosinophils # 0.1 K/mcL (0.0-0.6); Eosinophils % 0.7 %; Hematocrit 35.7 % (35.3-44.9); Hemoglobin 11.8 g/dL (11.5-15.4); Immature Granulocytes % 0.5 % (0-4); Lymphocytes # 1.8 K/mcL (0.6-4.6); Lymphocytes % 12.7 %; Mean Corpuscular HGB Conc 33.1 g/dL (31.6-35.5); Mean Corpuscular Hemoglobin 27.8 pg (28.0-33.3); Mean Platelet Volume 11.9 fL (9.4-12.4); Monocytes % 6.8 %; Neutrophils # 11.2 K/mcL (1.6-8.9); Platelet Count 193 K/mcL (140-400); Red Blood Count 4.25 M/mcL (3.82-4.97); Red Cell Distribution Width 14.1 % (11.5-14.5); Segmented Neutrophils % 79.1 %; White Blood Count 14.2 K/mcL (4.3-11.1)
[2020-12-20] MEDS ORDERED: EPHEDrine 50 MG/ML VIAL IVP PRN (18:52)
[2020-12-20] MEDS ORDERED: Epidural Premix (fent/bupiv) 110 ML EP SCH (19:00)
[2020-12-20 19:32] LABS: Amphetamine Screen,Urine Negative ng/mL (Cutoff=1000); Barbiturate Screen,Urine Negative ng/mL (Cutoff=200); Benzodiazepines Screen,Urine Negative ng/mL (Cutoff=200); Cannabinoid Screen,Urine Negative ng/mL (Cutoff = 50); Cocaine Screen,Urine Negative ng/mL (Cutoff= 300); Creatinine,Urine 139 mg/dL; Opiate Screen,Urine Negative ng/mL (Cutoff=300); Phencyclidine Screen,Urine Negative ng/mL (Cutoff=25); Protein/Creatinine Ratio,Urine 0.21 mg/mg (0.00-0.20)
[2020-12-20 19:36] LABS: Alanine Aminotransferase 6 Units/L (7-52); Aspartate Amino Transferase 13 Units/L (13-39); BUN/Creatinine Ratio 27 (6-26); Blood Urea Nitrogen 12 mg/dL (6-20); Lactate Dehydrogenase 168 Units/L (140-271); Uric Acid 5.1 mg/dL (2.3-7.6); eGFR For African Americans > 60 (> 60); eGFR For Non-African Americans > 60 (> 60)
[2020-12-20] MEDS ORDERED: miSOPROStoL 25 MCG TABLET PO PRN (20:05)
[2020-12-20] MEDS ORDERED: Oxytocin 20 units/ LR 1000 mL 20 UNIT/1,000 ML BAG IVC SCH (20:15)
[2020-12-20 21:08] LABS: Adenovirus Not Detected (Not Detect); Coronavirus 229E Not Detected (Not Detect); Coronavirus HKU1 Not Detected (Not Detect); Coronavirus NL63 Not Detected (Not Detect); Coronavirus OC43 Not Detected (Not Detect)
[2020-12-20 21:12] LABS: Bordetella Pertussis Not Detected (Not Detect); Chlamydophila pneumoniae Not Detected (Not Detect); Human Metapneumovirus Not Detected (Not Detect); Human Rhinovirus/Enterovirus Not Detected (Not Detect); Influenza A Subtype 2009 H1 Not Detected (Not Detect); Influenza B Not Detected (Not Detect); Mycoplasma pneumoniae Not Detected (Not Detect); Parainfluenza Virus 1 Not Detected (Not Detect); Parainfluenza Virus 2 Not Detected (Not Detect); Parainfluenza Virus 3 Not Detected (Not Detect); Parainfluenza Virus 4 Not Detected (Not Detect); Respiratory Syncytial Virus Not Detected (Not Detect); SARS-CoV-2 DETECTED (Not Detect)
[2020-12-21] MEDS ORDERED: Lanolin 7 G OINT...G. TP PRN (06:38)
[2020-12-21] MEDS ORDERED: Benzocaine/Menthol 56 GM AEROSOL SPRAY TP PRN (06:38)
[2020-12-21] MEDS ORDERED: Rho Immune Globulin 1,500 UNIT SYRINGE IM PRN (06:38)
[2020-12-21] MEDS ORDERED: Oxytocin 20 units/ LR 1000 mL 20 UNIT/1,000 ML BAG IVC SCH (06:45)
[2020-12-21] MEDS: Ibuprofen 600 MG TABLET PO PRN ×3 (08:00→23:38)
[2020-12-21] MEDS: Prenatal Vit/FA 1 EACH TABLET PO SCH (10:02)
[2020-12-21] MEDS: Acetaminophen 325 MG TABLET PO PRN (15:45)
[2020-12-22] MEDS: Acetaminophen 325 MG TABLET PO PRN ×2 (02:22→09:37)
[2020-12-22] MEDS: Ibuprofen 600 MG TABLET PO PRN (05:50)
[2020-12-22 07:46] VITALS: BP 108/64
[2020-12-22] MEDS ORDERED: Etonogestrel 68 MG IMPLANT IL ONE (08:56)
[2020-12-22] MEDS: Prenatal Vit/FA 1 EACH TABLET PO SCH (09:37)
[2020-12-22] MEDS ORDERED: Lidocaine/EPI 1:100k 1% 30 ML VIAL INFILT ONE (10:28)
== END 2020-12-22 13:28 | disposition home or self-care (01) | DRG 807 ==
LOC: 1NENULAB 17:26 → 1NENUOBS 12-21 08:35
PROVIDERS: ADMIT Registered Nurse; ATTEND Registered Nurse